=== PATIENT | female | born 1995 | race Caucasian/White ===

== ENCOUNTER 2023-01-28 18:20 | Emergency (ER) | payer MEDICAID ==
[~2023-01-28] VITALS: Ht 165.1 cm; Wt 56.0 kg
[2023-01-28 18:30] VITALS: BP 143/88; PULSE 88; RESP 16; TEMP 98.2; O2SAT 100
[2023-01-28 18:40] LABS: BASOPHILS % (AUTO) 0.3 % (0-1); EOSINOPHILS % (AUTO) 0.1 % (0-6); HEMATOCRIT 34.1 % (35.0-45.0); HEMOGLOBIN 10.9 g/dl (12.0-16.0); LYMPHOCYTES # (AUTO) 2.7 X10'3 (1.1-4.8); LYMPHOCYTES % (AUTO) 21.7 % (21-51); MEAN CORPUSCULAR HEMOGLOBIN 24.8 PG (27.0-31.0); MEAN CORPUSCULAR VOLUME 77.4 FL (78-98); MEAN PLATELET VOLUME 7.9 FL (7.4-10.4); MONOCYTES # (AUTO) 0.7 X10'3 (0-0.9); MONOCYTES % (AUTO) 5.5 % (2-12); NEUTROPHILS # (AUTO) 8.9 X10'3 (1.8-7.7); NEUTROPHILS % (AUTO) 72.4 % (42-75); PLATELET COUNT 358 X10'3 (140-440); RED BLOOD COUNT 4.41 X10'6 (4.20-5.60); RED CELL DISTRIBUTION WIDTH 17.9 % (11.5-14.5); WHITE BLOOD COUNT 12.3 X10'3 (4.5-11.0)
[2023-01-28 19:19] LABS: ALANINE AMINOTRANSFERASE 14 U/L (12-78); ALBUMIN 3.9 G/DL (3.4-5.0); ALBUMIN/GLOBULIN RATIO 1.1 (1.1-1.5); ALKALINE PHOSPHATASE 54 IU/L (46-116); ANION GAP 9 (8-16); ASPARTATE AMINO TRANSFERASE 8 U/L (10-37); BILIRUBIN,TOTAL 0.3 MG/DL (0.1-1.0); BLOOD UREA NITROGEN 8 MG/DL (7-18); BUN/CREATININE RATIO 10.1 (10.0-20.0); CALCIUM 8.5 MG/DL (8.5-10.1); CHLORIDE 105 MMOL/L (99-107); CREATININE 0.79 MG/DL (0.40-0.90); GLUCOSE 125 MG/DL (70-104); POTASSIUM 3.4 MMOL/L (3.5-5.1); SODIUM 138 MMOL/L (135-145); TOTAL CARBON DIOXIDE 23.7 MMOL/L (24-32); TOTAL PROTEIN 7.3 G/DL (6.4-8.2); eCRCL 95 ML/MIN; eGFR 88 ML/MIN
[2023-01-28 19:27] LABS: PRO BRAIN NATRIURETIC PEPTIDE 193 PG/ML (0-125)
[2023-01-28] MEDS ORDERED: LIDOcaine Viscous 15ml cup MM ONE (22:50)
[2023-01-28] MEDS ORDERED: ketorolac tromethamine 15mg/ml inj. IM ONE (22:50)
[2023-01-28] MEDS ORDERED: mag hydrox/Alum hydrox/simeth 30ml oral suspension PO ONE (22:50)
== END 2023-01-29 00:10 | disposition left against medical advice (07) ==
LOC: ER 18:21
DX: R07.89 Other chest pain (principal)
CPT/HCPCS: 36415; 71045; 80053; 83880; 84484; 85025; 93005; 99285